=== PATIENT | female | born 2000 | race Caucasian/White ===

== ENCOUNTER 2020-12-31 18:59 | Emergency (ER) | payer SELFPAY ==
[~2020-12-31] VITALS: Ht 172.7 cm; Wt 85.0 kg
[2020-12-31] MEDS ORDERED: ACETAMINOPHEN 325MG TABLET PO STA (19:16)
[2020-12-31] MEDS ORDERED: IBUP-2029 MT (21:01)
[2020-12-31 21:45] VITALS: BP 122/76
== END 2020-12-31 21:49 | disposition home or self-care (01) ==
LOC: ER 18:59
DX: R51.9 Headache, unspecified (principal)
CPT/HCPCS: 99284